=== PATIENT | male | born 1980 | race Caucasian/White ===

== ENCOUNTER 2021-12-09 18:48 | Emergency (ER) | payer MEDICAID ==
[~2021-12-09] VITALS: Ht 177.8 cm; Wt 68.3 kg
[2021-12-09 19:09] VITALS: BP 120/83
== END 2021-12-09 23:05 | disposition left against medical advice (07) ==
LOC: ER 18:49
DX: R10.9 Unspecified abdominal pain (principal); Z53.21 Procedure and treatment not carried out due to patient leaving prior to being seen by health care provider

== ENCOUNTER 2021-12-22 08:23 | Emergency (ER) | payer MEDICAID ==
[~2021-12-22] VITALS: Ht 177.8 cm; Wt 71.0 kg
[2021-12-22 08:26] VITALS: BP 131/95
[2021-12-22 09:20] LABS: CLARITY,URINE CLEAR (Clear); COLOR,URINE YELLOW (Yellow); GLUCOSE, URINE NEGATIVE (Neg); KETONES,URINE TRACE mg/dl (Neg); LEUKOCYTE ESTERASE ,URINE NEGATIVE (Neg); NITRITES, URINE NEGATIVE (Neg); OCCULT BLOOD,URINE NEGATIVE (Neg); PROTEIN,URINE 30 mg/dl (Neg); UROBILINOGEN,URINE 0.2 E.U/dL (0.2-1.0)
[2021-12-22 09:48] LABS: UA COLLECTION TYPE CLN CATCH MIDSTREAM
[2021-12-22 09:50] LABS: BACTERIA,URINE NONE SEEN /HPF (Neg); HYALINE CASTS 0-3 /LPF (NEGATIVE); MUCUS STRANDS NONE SEEN /LPF (Neg); RBC,URINE NONE SEEN /HPF (0-2); SPERM MODERATE /HPF (NEGATIVE); SQUAMOUS EPITHELIAL CELL,UR NONE SEEN /LPF (FEW); WBC,URINE 0-4 /HPF (0-4)
[2021-12-22] MEDS ORDERED: DOXY-1 PO (09:51)
--- NOTE | 2021-12-22 09:51 | NUR ---
Ultrasound in progress.
--- NOTE | 2021-12-22 09:54 | NUR ---
Patient seen and assessed by provider.
== END 2021-12-22 09:58 | disposition home or self-care (01) ==
LOC: ER 08:24
DX: N45.1 Epididymitis (principal); N50.812 Left testicular pain; Z79.2 Long term (current) use of antibiotics
CPT/HCPCS: 76870; 81001; 93976; 99284